=== PATIENT | male | born 1980 | race Caucasian/White ===

== ENCOUNTER 2019-03-04 18:14 | Emergency (ER) | payer OTHER ==
[~2019-03-04] VITALS: Ht 170.2 cm; Wt 59.0 kg
[~2019-03-04 18:14] MED LIST: AMOXICILLIN 50500 MG PO; VICODIN 5-5001 EACH PO
[2019-03-04 20:01] VITALS: BP 112/68
== END 2019-03-04 20:03 | disposition home or self-care (01) ==
LOC: M.ERS 18:14
DX: R07.81 Pleurodynia (principal); M54.6 Pain in thoracic spine; F90.9 Attention-deficit hyperactivity disorder, unspecified type

== ENCOUNTER 2019-06-22 13:31 | Emergency (ER) | payer OTHER ==
[~2019-06-22] VITALS: Ht 170.2 cm; Wt 61.2 kg
[2019-06-22 14:51] VITALS: BP 114/70
== END 2019-06-22 14:50 | disposition home or self-care (01) ==
LOC: M.ERS 13:31
DX: M54.6 Pain in thoracic spine (principal); M25.512 Pain in left shoulder; F90.9 Attention-deficit hyperactivity disorder, unspecified type

== ENCOUNTER 2021-02-11 15:35 | Emergency (ER) | payer OTHER ==
[~2021-02-11] VITALS: Ht 170.2 cm; Wt 59.9 kg
[2021-02-11] MEDS ORDERED: HYDROCODON-ACE1 EAC7 PO (17:19)
[2021-02-11] MEDS ORDERED: FLEXERIL PO (17:19)
[2021-02-11 17:34] VITALS: BP 115/85
== END 2021-02-11 17:30 | disposition home or self-care (01) ==
LOC: M.ERS 15:35
DX: M25.562 Pain in left knee (principal); F17.210 Nicotine dependence, cigarettes, uncomplicated

== ENCOUNTER 2021-09-15 12:17 | Emergency (ER) | payer OTHER ==
[~2021-09-15] VITALS: Ht 170.2 cm; Wt 61.2 kg
[~2021-09-15 12:17] MED LIST changes: +FLEXERIL PO; +HYDROCODON-ACE1 EAC7 PO
[2021-09-15] MEDS ORDERED: AMOXICILLIN 50500 MG PO (15:29)
[2021-09-15 15:44] VITALS: BP 115/74
== END 2021-09-15 15:45 | disposition home or self-care (01) ==
LOC: M.ERS 12:17
DX: K08.89 Other specified disorders of teeth and supporting structures (principal); F90.9 Attention-deficit hyperactivity disorder, unspecified type; F17.210 Nicotine dependence, cigarettes, uncomplicated